=== PATIENT | male | born 1945 | race Caucasian/White ===

== ENCOUNTER 2024-03-06 11:06 | Emergency (ER) | payer MEDICARE, SELFPAY ==
--- NOTE | 2024-03-06 11:13 | ED.UPPEXIN ---
HPI - Extremity Injury (Upper) General Chief Complaint: Extremity Problem,Nontraumatic Stated Complaint: Left Hand Swelling Time Seen by Provider: 03/06/24 11:07 Source: patient Mode of arrival: ambulatory Limitations: no limitations History of Present Illness HPI narrative: Patient is an 78-year-old male who presents with left hand swelling since Sunday evening. Patient was working in the garden on Sunday and said Sunday morning his hand was swollen. Has taken 200 mg of ibuprofen twice along with the Benadryl with no relief. Patient drives a school bus. Has not used ice, heat or wrapping. Patient still able to use hand normally but does report numbness and tingling to 3rd and 4th digit. Denies any red streaking up arm, fever, chills, nausea, vomiting, diarrhea. Related Data Home Medications Medication Instructions Recorded Confirmed Unable to Obtain Home Medications 03/06/24 03/06/24 Allergies Allergy/AdvReac Type Severity Reaction Status Date / Time No Known Allergies Allergy Verified 03/06/24 11:33 Review of Systems Review of Systems: All systems reviewed & are unremarkable except as noted in HPI and below Constitutional: Constitutional: Denies body ache(s), Denies chills, Denies fatigue, Denies fever(s), Denies headache(s), Denies malaise and Denies weakness Eyes: Eyes: Denies blurry vision, Denies irritation and Denies loss of vision ENT: Denies otalgia, Denies headache(s), Denies nasal discharge, Denies sinus pain and Denies sore throat Cardiovascular: Cardiovascular: Denies chest pain, Denies irregular heart rhythm and Denies dyspnea Respiratory: Respiratory: Denies dyspnea Gastrointestinal: Gastrointestinal: Denies abdominal pain, Denies melena, Denies hematochezia, Denies diarrhea, Denies nausea and Denies vomiting Musculoskeletal: Musculoskeletal: Denies back pain, Denies myalgias, Reports arthralgias and Reports joint swelling Integumentary/Breasts: Skin/Breast: Denies pruritus and Denies rash Neurologic: Denies headache(s), Denies loss of vision and Denies weakness Psychiatric: Psychiatric: Reports no additional psychiatric complaints Endocrine: Endocrine: Denies fatigue PMF Family History Family History Father Family history of malignant neoplasm, Onset Age: 83 Patient's father is Family history of malignant neoplasm of urinary bladder Mother Family history of malignant neoplasm of breast in first degree relative Patient's mother is Sibling Family history of malignant neoplasm of ovary Patient's sister is Social History Social History Smoking status: Never smoker Second hand tobacco smoke exposure: No Alcohol intake: never Comments At time of signature, agree with nursing past medical, surgical, social and family history. There is no relevant family history pertinent to the presenting complaint. Exam Const: General: cooperative, healthy appearing, comfortable, no acute distress and well nourished Nutritional Appearance: well nourished Orientation/consciousness: patient oriented x3 Limitations: no limitations HENMT: Head: normal to inspection, normocephalic and atraumatic Ears: hearing grossly normal bilaterally and external ears normal Face/Nose/Sinus: Normal external nose present, normal facial exam and face symmetric Face and sinus: normal facial exam and face symmetric Mouth: Yes lip normal Eyes: General: appearance normal, both eyes and all related structures Alignment and Position: alignment normal and position normal Periorbital: periorbital findings normal Eyelids: eyelids normal Pupils: Equal, round and reactive pupils present EOM: EOMs intact bilaterally Neck: Neck: normal visual inspection, full ROM and supple Chest: Chest palpation & inspection: normal inspection of the chest Resp: Effort & Inspection: nor
[2024-03-06 11:24] VITALS: BP 151/69; PULSE 88; RESP 18; TEMP 36.5; O2SAT 97
--- NOTE | 2024-03-06 11:49 | PC.NURSE ---
+PMS POST JACINTA APPLICATION
== END 2024-03-06 11:45 | disposition home or self-care (01) ==
PROVIDERS: Emergency Provider Nurse Practitioner Family; PCP Hospitalist
DX: L03.114 Cellulitis of left upper limb (principal)
CPT/HCPCS: 99213; G0463